=== PATIENT | male | born 1940 | race African-American/Black ===

== ENCOUNTER → 2017-12-15 | Day surgery (SDC) | payer MEDICARE, MEDICAID ==
[~2017-12-15] VITALS: Ht 181.6 cm; Wt 98.0 kg
[~2017-12-15] MED LIST: ACETAMINOPHEN 325MG TABLET PO PRN; ASPI-1159 PO; ASPIRIN/SOD BICARB/CITRIC ACID 324MG TAB EFF ONE; ATOR-2 PO; ATROPINE SULFATE 1MG/10ML SYR IV PRN; CILO100T PO; CLOP75TA16 PO; CLOPIDOGREL 75MG TABLET ONE; DEXTROSE 50% WATER 50ML SYRINGE IV ONE; FENTANYL CITRATE/PF 50MCG/ML 2ML VIAL ONE; FERR-63 PO; HEPARIN SODIUM 1,000 UNIT/1ML VIAL IV ONE; HYDR-4005 PO; INSLAN SQ; INSU100I13 SQ; INSU100V28 IJ; INSU300I SQ; IODIXANOL 320MG/ML 100 ML BOTTLE IV ONE; IOHEXOL-300 100 ML BOTTLE ONE; LIDOCAINE HCL 1% 20ML VIAL (Pyxis) INJ ONE; MIDAZOLAM HCL 2 MG/2 ML VIAL ONE; MORPHINE SULFATE 4 MG/ML CPJ (NOT FOR IM USE) IV PRN; NICARDIPINE 100MCG/ML 10ML VIAL (CATH LAB) IV ONE; NITROGLYCERIN 50MCG/ML 10ML VIAL (CATH LAB) IV ONE; OLME1TAB27 PO; ONDANSETRON HCL 4MG/2ML VIAL IV PRN
== END | disposition home or self-care (01) ==
LOC: CCL 08:03
PROVIDERS: ATTEND Specialist
DX: I25.10 Atherosclerotic heart disease of native coronary artery without angina pectoris (principal); E66.9 Obesity, unspecified; Z68.30 Body mass index [BMI] 30.0-30.9, adult; E78.5 Hyperlipidemia, unspecified; I13.10 Hypertensive heart and chronic kidney disease without heart failure, with stage 1 through stage 4 chronic kidney disease, or unspecified chronic kidney disease; E11.22 Type 2 diabetes mellitus with diabetic chronic kidney disease; N18.3 Chronic kidney disease, stage 3 (moderate); Z79.4 Long term (current) use of insulin; I73.9 Peripheral vascular disease, unspecified; Z79.82 Long term (current) use of aspirin; M86.8X7 Other osteomyelitis, ankle and foot; Z89.429 Acquired absence of other toe(s), unspecified side; Z98.49 Cataract extraction status, unspecified eye; Z79.899 Other long term (current) drug therapy; Z83.3 Family history of diabetes mellitus
CPT/HCPCS: 82962; 85347; 93005; 93458; 93571; 99152; 99153; C1769; C1887; C1893; J1644; J2250; J3010; J3490; Q9967

== ENCOUNTER → 2020-08-11 | Outpatient (CLI) | payer MEDICARE, MEDICAID ==
[~2020-08-11] MED LIST changes: -ACETAMINOPHEN 325MG TABLET PO PRN; +AMLO5TAB88 PO; -ASPI-1159 PO; +ASPI-1497 PO; -ASPIRIN/SOD BICARB/CITRIC ACID 324MG TAB EFF ONE; -ATROPINE SULFATE 1MG/10ML SYR IV PRN; +CLOP-31 PO; -CLOP75TA16 PO; -CLOPIDOGREL 75MG TABLET ONE; -DEXTROSE 50% WATER 50ML SYRINGE IV ONE; -FENTANYL CITRATE/PF 50MCG/ML 2ML VIAL ONE; -HEPARIN SODIUM 1,000 UNIT/1ML VIAL IV ONE; -INSLAN SQ; -INSU100V28 IJ; -IODIXANOL 320MG/ML 100 ML BOTTLE IV ONE; -IOHEXOL-300 100 ML BOTTLE ONE; -LIDOCAINE HCL 1% 20ML VIAL (Pyxis) INJ ONE; -MIDAZOLAM HCL 2 MG/2 ML VIAL ONE; -MORPHINE SULFATE 4 MG/ML CPJ (NOT FOR IM USE) IV PRN; -NICARDIPINE 100MCG/ML 10ML VIAL (CATH LAB) IV ONE; -NITROGLYCERIN 50MCG/ML 10ML VIAL (CATH LAB) IV ONE; -ONDANSETRON HCL 4MG/2ML VIAL IV PRN; +SPIR25TA6 PO
== END | disposition home or self-care (01) ==
LOC: LAB 10:28
PROVIDERS: ATTEND Specialist
DX: Z01.812 Encounter for preprocedural laboratory examination (principal); Z20.822 Contact with and (suspected) exposure to COVID-19
CPT/HCPCS: 87426